=== PATIENT | male | born 1960 | race Caucasian/White ===

== ENCOUNTER 2016-04-03 12:21 | Emergency (ER) | payer OTHER ==
[2016-04-03] MEDS ORDERED: oxyCOD/ACETAMIN 5 MG/325 MG TABLET PO STA (14:42)
[2016-04-03] MEDS ORDERED: DEXAMETHASONE 10 MG/ML VIAL PO STA (14:42)
[2016-04-03] MEDS ORDERED: KETOROLAC 60 MG/2 ML VIAL IM STA (14:42)
[2016-04-03] MEDS ORDERED: CHERRY SYRUP 10 ML UDC PO ONE (14:52)
[2016-04-03] MEDS ORDERED: oxyCOD/ACETAMIN 5 MG/325 MG TABLET PO ONE ×2 (14:52→15:01)
[2016-04-03] MEDS ORDERED: DEXAMETHASONE 10 MG/ML VIAL ONE (14:53)
[2016-04-03] MEDS ORDERED: KETOROLAC 60 MG/2 ML VIAL ONE (14:53)
== END 2016-04-03 15:07 | disposition home or self-care (01) ==
DX: M54.13 Radiculopathy, cervicothoracic region (principal); M54.6 Pain in thoracic spine; I10 Essential (primary) hypertension; Z79.82 Long term (current) use of aspirin
CPT/HCPCS: 96372; 99283; 99284; A9270

== ENCOUNTER 2016-08-14 20:33 | Outpatient (CLI) | payer OTHER | END 2016-08-14 20:34 | disposition E | LOC: EMS 20:33 | PROVIDERS: ATTEND Surgery | DX: S01.93XA Puncture wound without foreign body of unspecified part of head, initial encounter (principal); W32.0XXA Accidental handgun discharge, initial encounter; Y92.003 Bedroom of unspecified non-institutional (private) residence as the place of occurrence of the external cause | CPT/HCPCS: A0425; A0429 ==